=== PATIENT | female | born 1945 | race Caucasian/White ===

== ENCOUNTER 2018-12-16 23:08 | Emergency (ER) | payer OTHER, SELFPAY ==
[2018-12-16 23:14] VITALS: BP 146/75; PULSE 56; RESP 18; TEMP 36.1; O2SAT 99
--- NOTE | 2018-12-16 23:24 | DI.CT.S_ITS ---
PROCEDURE: CT HEAD/BRAIN WO CON INDICATIONS: dizziness TECHNIQUE: Noncontrast 4.5 mm thick angled axial sections acquired from the foramen magnum to the vertex, with coronal and sagittal reformats. For radiation dose reduction, the following was used: automated exposure control, adjustment of mA and/or kV according to patient size. COMPARISON: None. FINDINGS: Image quality: Excellent. CSF spaces: Basal cisterns are patent. No extra-axial fluid collections. The ventricles are symmetric in size and shape. Brain: No intracranial bleeds or masses. There is cerebral volume loss for age, with resultant ventricular and sulcal prominence. There are periventricular and deep white matter chronic small vessel ischemic changes. There is intracranial internal carotid artery atherosclerosis. Skull and face: Calvarium and visualized facial bones appear intact, without suspicious lesions. Sinuses: Visualized sinuses and mastoids are clear. IMPRESSION: 1. No acute intracranial findings. These findings are concordant with the overnight interpretation. Dictated by: Tala Foley M.D. on 12/17/2018 at 7:15 Approved by: Tala Foley M.D. on 12/17/2018 at 7:17
--- NOTE | 2018-12-16 23:27 | ED_ITS ---
HPI - General Adult General Chief complaint: Trauma Stated complaint: fell, hit head Time Seen by Provider: 12/16/18 23:17 Source: patient and family Mode of arrival: ambulatory Limitations: no limitations History of Present Illness HPI narrative: 73-year-old female who arrived to the emergency department with her after she sustained a fall earlier this afternoon. The patient and her state that they were at a wedding earlier today. They did have some alcoholic beverages. She stated that when she arrived home she had some episodes of dizziness where she did fall over and hit her head. She is not on anti coagulation. Since then has had quite a bit of balance issues since then. Had to rely quite a been on her to support her to come into the emergency department. Was unable to walk unassisted back to the room. Related Data Allergies Allergy/AdvReac Type Severity Reaction Status Date / Time No Known Drug Allergies Allergy Verified 12/16/18 23:37 Review of Systems Constitutional Denies fatigue, Denies fever(s), Denies frequent falls, Reports headache(s) and Denies weakness Eyes Denies change in vision and Denies diplopia ENT Ears, Nose, Mouth, and Throat: Reports vertigo, Reports dizziness, Reports headache(s), Denies hearing loss, Denies neck pain, Reports disequilibrium and Denies tinnitus Cardiovascular Denies chest pain, Denies syncope, Denies palpitations and Denies dyspnea Respiratory Denies cough and Denies dyspnea Gastrointestinal Gastrointestinal: Denies abdominal pain, Denies nausea and Denies vomiting Genitourinary Denies dysuria Musculoskeletal Reports abnormal gait, Denies myalgias, Denies arthralgias and Denies neck pain Integumentary/Breasts Comments: Cut behind the left ear Neurologic Denies abnormal movements, Denies abnormal speech, Reports abnormal gait, Denies behavioral changes, Reports confusion, Reports vertigo, Reports dizziness, Denies syncope, Denies frequent falls, Reports headache(s), Denies paresthesias, Denies tremor(s), Reports disequilibrium and Denies weakness Psychiatric Denies behavioral changes and Reports confusion Endocrine Denies fatigue and Denies palpitations Hematologic/Lymphatic Denies easy bleeding and Denies easy bruising Allergic/Immunologic Denies urticaria [facility] Medical History Patient denies medical problems (Acute) Social History marital status: lives independently: Yes Social History marital status: lives independently: Yes Exam Initial Vital Signs Initial Vital Signs: Vital Signs Temperature 97.0 F L 12/16/18 23:14 Pulse Rate 56 L 12/16/18 23:14 Respiratory Rate 18 12/16/18 23:14 Blood Pressure 146/75 H 12/16/18 23:14 Pulse Oximetry 99 12/16/18 23:14 Const General: cooperative, healthy appearing, comfortable, well developed, well groomed and No acute distress Orientation: alert, awake and oriented x3 HENMT Head: normal to inspection and other (Cut behind the left ear) Ears: TM's normal bilaterally Eyes Pupils: PERRL EOM: EOM intact bilaterally Chest Chest: No crepitus Resp Effort & Inspection: normal respiratory effort Auscultation: clear to auscultation bilaterally Cardio Rate: regular rate Rhythm: regular rhythm Pulses: radial pulses present GI Inspection: non-distended Palpation: soft, No firm and No tender Back/Spine/Pelvis Cervical Spine: collar present and No cervical spinal tenderness Thoracic/Lumbar Spine: No thoracic spinal tenderness and No lumbar spinal tenderness Skin Other: Patient with a 2 cm cut posterior aspect the left ear. Skin abrasion at the crease between the left ear and they scalp. 1 cm cut the skin in the left ear. Neuro General: alert, awake and oriented x3 Cranial Nerves: CN's II-XI intact bilaterally Cognition: normal cognition Speech: speech normal Motor: muscle tone normal throughout Sensory Exam: no sensory deficits noted Coordination: [id number] test normal and [id number]-[id number] test normal Extrem General: normal to inspection and capillary refill normal Procedures Laceration Repair Laceration 1: Site: other (Left ear) Side (If applicable): left Size (cm): 2 Description: linear Depth: simple, single layer Local Anesthetic: lidocaine 1% Amount of anesthesia used (mL): 2 Pre-repair: wound explored, irrigated extensively and deep structures intact Skin layer closed with: other (Chromic) Size (cm): 5-0 Number of sutures: 3 Technique: simple, interrupted Laceration 2: Site: other (Left ear) Side (If applicable): left Size (cm): 1 Description: linear Depth: simple, single layer Local Anesthetic: lidocaine 1% Amount of anesthesia used (mL): 2 Skin layer closed with: other (Chromic) Size (cm): 5-0 Number of sutures: 2 Technique: simple, interrupted Scores GCS Ning coma scale eye opening: Spontaneous Ning coma scale verbal response: Orientated [place] coma scale motor response: Obey commands Ning coma scale total score: 15 Nexus Score for C-Spine Focal Neurologic deficit present: No Midline spinal tenderness present: No Altered level of conciousness present: No Intoxication present: Yes Distracting Injury Present: No Nexus Criteria for C-spine: 1 NIH Stroke Scale Level of Conciousness: Alert, keenly responsive Ask month/age: Answers both questions correctly. Open/close eyes, close hand: Performs both tasks correctly Best gaze horizontal: Normal Visual pedro: No visual loss Facial palsy: Normal symetrical movement Left arm drift: No drift for full 10 sec Right arm drift: No drift for full 10 sec Left leg drift: No drift for full 10 sec Right leg drift: No drift for full 10 sec Limb ataxia: Absent Sensory on face/arms/legs: Normal, no sensory loss Best language: No aphasia, normal Dysarthria: Normal Extinction or inattention: No abnormality Total NIH Stroke scale score: 0 Course Orders Ordered: ED Orders 12/16/18 23:17 Complete Blood Count AUTO DIFF Stat Comprehensive Metabolic Panel Stat Lipase Stat 12/16/18 23:18 EKG-12 Lead Stat 12/16/18 23:24 CT head/brain wo con Stat 12/16/18 23:28 CT cervical spine wo con Stat Ethanol (ETOH) Stat 12/16/18 23:29 Partial Thromboplastin Time Stat Prothrombin Time INR Stat Vital Signs - 8 hr 12/16/18 23:14 12/17/18 00:29 12/17/18 01:35 Temperature 97.0 F L Pulse Rate 56 L 61 72 Respiratory Rate 18 13 19 Blood Pressure 146/75 H 117/60 Blood Pressure [Left Arm] 113/59 L Pulse Oximetry 99 98 97 Medical Decision Making Lab Data Lab results reviewed: Yes I reviewed the patient's lab results. Result diagrams: 12/17/18 00:26 12/17/18 00:26 Lab Results 12/17/18 12/17/18 12/17/18 Range/Units 00:26 00:26 00:26 WBC 6.9 (4.5-11.0) X10^3/uL RBC 3.75 L (4.0-5.2) X10^6/uL Hgb 12.6 (12.0-16.0) g/dL Hct 37.1 (36-46) % MCV 99.0 (80-100) fL MCH 33.7 (26-34) PG MCHC 34.0 (30-36) % RDW 12.8 (11.6-14.8) % Plt Count 196 (150-400) X10^3/uL Neut % (Auto) 84.2 H (50-75) % Lymph % (Auto) 9.8 L (25-40) % [place] % (Auto) 4.9 (3-14) % Eos % (Auto) 0.8 L (2-4) % Baso % (Auto) 0.3 (0-2) % Neut # (Auto) 5800 (0142-4237) /uL Lymph # (Auto) 700 L (0995-0461) /uL [place] # (Auto) 300 (0-900) /uL Eos # (Auto) 100 (0-450) /uL Baso # (Auto) 0 (0-100) /uL PT (10.1-12.7) SECONDS INR (0.9-1.3) APTT (26.4-36.2) SECONDS Sodium 136 L (137-145) mmol/L Potassium 3.7 (3.4-5.1) mmol/L Chloride 97 L (98-107) mmol/L Carbon Dioxide 22 (22-32) mmol/L BUN 9 (7-17) mg/dL Creatinine 0.60 (0.52-1.04) mg/dL Estimated GFR > 60.0 (>60) mL/min BUN/Creatinine Ratio 15.0 (6-22) Glucose 121 H (80-110) mg/dL Calcium 9.0 (8.4-10.2) mg/dL Total Bilirubin 0.3 (0.2-1.3) mg/dL AST 38 H (14-36) IU/L ALT 20 (9-52) IU/L Alkaline Phosphatase 57 (38-126) U/L Total Protein 7.2 (6.3-8.2) g/dL Albumin 4.4 (3.5-5.0) g/dL Globulin 2.8 (1.7-4.1) g/dL Albumin/Globulin Ratio 1.6 (1.0-2.8) Lipase 67 (23-300) U/L Ethyl Alcohol 123 mg/dL 12/17/18 Range/Units 00:26 WBC (4.5-11.0) X10^3/uL RBC (4.0-5.2) X10^6/uL Hgb (12.0-16.0) g/dL Hct (36-46) % MCV (80-100) fL MCH (26-34) PG MCHC (30-36) % RDW (11.6-14.8) % Plt Count (150-400) X10^3/uL Neut % (Auto) (50-75) % Lymph % (Auto) (25-40) % [place] % (Auto) (3-14) % Eos % (Auto) (2-4) % Baso % (Auto) (0-2) % Neut # (Auto) (0092-5979) /uL Lymph # (Auto) (1408-5381) /uL [place] # (Auto) (0-900) /uL Eos # (Auto) (0-450) /uL Baso # (Auto) (0-100) /uL PT 10.9 (10.1-12.7) SECONDS INR 1.0 (0.9-1.3) APTT 28 (26.4-36.2) SECONDS Sodium (137-145) mmol/L Potassium (3.4-5.1) mmol/L Chloride (98-107) mmol/L Carbon Dioxide (22-32) mmol/L BUN (7-17) mg/dL Creatinine (0.52-1.04) mg/dL Estimated GFR (>60) mL/min BUN/Creatinine Ratio (6-22) Glucose (80-110) mg/dL Calcium (8.4-10.2) mg/dL Total Bilirubin (0.2-1.3) mg/dL AST (14-36) IU/L ALT (9-52) IU/L Alkaline Phosphatase (38-126) U/L Total Protein (6.3-8.2) g/dL Albumin (3.5-5.0) g/dL Globulin (1.7-4.1) g/dL Albumin/Globulin Ratio (1.0-2.8) Lipase (23-300) U/L Ethyl Alcohol mg/dL Imaging Data CT scan - head: Radiologist's impression: No acute intracranial findings CT cervical spine: Radiologist's impression: Degenerative spondylolisthesis. No acute fracture ECG Data Attestation: I personally reviewed and interpreted this ECG as follows: Prior ECG tracings: not available for review Interpretation: Sinus bradycardia Ventricular rate of 53 Normal axis Normal QTC Normal QRS No ST T wave changes MDM Narrative Medical decision making narrative: Patient was able to ambulate to the bathroom after sometime here in the emergency department without much difficulty. She does have an elevated alcohol level. Her NIH score is 0. GCS of 15. Head CT and cervical spine CT is unremarkable. The cut behind her left ear were closed as described above. She did have 1 cut over the ear on the left however was not deep. There was no cartilage exposed. We did discuss potential antibiotics for prophylaxis however patient has had C diff in the past and wants to avoid antibiotics at all cost. She was given care instructions given and return precautions with regard to the stitches. I have low suspicion for CVA. I do lopez spect that her balance issues where the results of alcohol. A code stroke and modified trauma was called on this individual. Patient was given general return precautions and follow-up instructions. With her and her who is at bedside expressed understanding and agreement with plan. Discharge Plan Departure Patient Disposition: Home Clinical Impression: Laceration Fall Qualifiers: Encounter type: initial encounter Qualified Code(s): W19.XXXA - Unspecified fall, initial encounter Alcohol intoxication Qualifiers: Complication of substance-induced condition: uncomplicated Qualified Code(s): F10.920 - Alcohol use, unspecified with intoxication, uncomplicated Discharge Date/Time: 12/17/18 01:35 Interventions: ED Discharge Assessment Last Done: 12/17/18 01:35 Instructions: DI for Minor Laceration Activity Restrictions/Additional Instructions: No driving for the next 24 hours. The stitches that were placed should come out on their own. You can shower like normal. Do not scrub the area. You can take Tylenol for any headaches. Return to the emergency department for any new or worsening symptoms
--- NOTE | 2018-12-16 23:28 | DI.CT.S_ITS ---
PROCEDURE: CT CERVICAL SPINE WO CON INDICATIONS: Fall TECHNIQUE: Noncontrast 3 mm thick sections acquired from the skull base to the T4 level. Sagittal and coronal reformats were then constructed. For radiation dose reduction, the following was used: automated exposure control, adjustment of mA and/or kV according to patient size. COMPARISON: [facility], CT, CT HEAD/BRAIN WO CON, 12/16/2018, 23:30. FINDINGS: Image quality: Excellent. Bones: No fractures or dislocations. Moderate to severe degenerative changes are present at C1-C2. Severe facet sclerosis is present throughout the upper cervical spine. Visualized superior ribs are intact. Soft tissues: Prevertebral soft tissues are normal in thickness. No paravertebral hematomas. No apical pneumothoraces. IMPRESSION: No acute cervical spine injury. Degenerative change. These findings are concordant with the overnight interpretation. Dictated by: Tala Foley M.D. on 12/17/2018 at 7:17 Approved by: Tala Foley M.D. on 12/17/2018 at 7:21
--- NOTE | 2018-12-16 23:36 | PC.NURSE ---
Pt has a very small laceration behind left ear.
[2018-12-17 00:29] VITALS: BP 113/59; PULSE 61; RESP 13; O2SAT 98
--- NOTE | 2018-12-17 00:30 | PC.NURSE ---
c collar removed by dr neal
[2018-12-17 00:46] LABS: Add Manual Diff / Slide Review NO; Basophils Absolute Auto 0 /uL (0-100); Basophils Percent Auto 0.3 % (0-2); Eosinophils Absolute Auto 100 /uL (0-450); Eosinophils Percent Auto 0.8 % (2-4); Hematocrit 37.1 % (36-46); Hemoglobin 12.6 g/dL (12.0-16.0); Lymphocytes Absolute Auto 700 /uL (1100-4500); Lymphocytes Percent Auto 9.8 % (25-40); Mean Corpuscular Hemoglobin 33.7 PG (26-34); Monocytes Absolute Auto 300 /uL (0-900); Monocytes Percent Auto 4.9 % (3-14); Neutrophils Absolute Auto 5800 /uL (1500-7000); Neutrophils Percent Auto 84.2 % (50-75); Platelet Count 196 X10^3/uL (150-400); Red Blood Cell Count 3.75 X10^6/uL (4.0-5.2); Red Cell Distribution Width 12.8 % (11.6-14.8); White Blood Cell Count 6.9 X10^3/uL (4.5-11.0)
[2018-12-17 00:48] LABS: Prothrombin Time 10.9 SECONDS (10.1-12.7)
[2018-12-17 00:51] LABS: PTT Partial Thromboplastin Tim 28 SECONDS (26.4-36.2)
[2018-12-17 00:55] LABS: Ethanol (ETOH) 123 mg/dL
[2018-12-17 00:56] LABS: Alanine Aminotransferase 20 IU/L (9-52); Albumin 4.4 g/dL (3.5-5.0); Albumin Globulin Ratio 1.6 (1.0-2.8); Alkaline Phosphatase 57 U/L (38-126); Aspartate Aminotransferase 38 IU/L (14-36); Bilirubin Total 0.3 mg/dL (0.2-1.3); Blood Urea Nitrogen 9 mg/dL (7-17); Carbon Dioxide 22 mmol/L (22-32); Chloride 97 mmol/L (98-107); Estimated Glomerular Filt Rate > 60.0 mL/min (>60); Globulin 2.8 g/dL (1.7-4.1); Glucose 121 mg/dL (80-110); HEMOLYSIS < 15 (0-50); Lipase 67 U/L (23-300); Potassium 3.7 mmol/L (3.4-5.1); Sodium 136 mmol/L (137-145); Total Protein 7.2 g/dL (6.3-8.2)
--- NOTE | 2018-12-17 01:13 | PC.NURSE ---
Pt ambulated to restroom. Gait much steadier that at arrival.
[2018-12-17 01:35] VITALS: BP 117/60; PULSE 72; RESP 19; O2SAT 97
== END 2018-12-17 01:35 | disposition home or self-care (01) ==
PROVIDERS: Emergency Provider Emergency Medicine
DX: S01.312A Laceration without foreign body of left ear, initial encounter (principal); R00.1 Bradycardia, unspecified; F10.920 Alcohol use, unspecified with intoxication, uncomplicated; W19.XXXA Unspecified fall, initial encounter; Y90.6 Blood alcohol level of 120-199 mg/100 ml
CPT/HCPCS: 12013; 36415; 70450; 72125; 80053; 80320; 83690; 85025; 85610; 85730; 93005; 99283; 99285